=== PATIENT | female | born 1945 | race Caucasian/White ===

== ENCOUNTER → 2017-08-14 | Outpatient (CLI) | payer MEDICARE | END | disposition home or self-care (01) | LOC: RAH 09:44 | PROVIDERS: ATTEND Internal Medicine | DX: K80.20 Calculus of gallbladder without cholecystitis without obstruction (principal) | CPT/HCPCS: 76700 ==

== ENCOUNTER → 2017-09-24 | Outpatient (CLI) | payer MEDICARE ==
[2017-09-24 12:15] LABS: CREATININE 0.7 mg/dL (0.5-1.5)
== END | disposition home or self-care (01) ==
LOC: LAB 11:01
PROVIDERS: ATTEND Internal Medicine Gastroenterology
DX: C16.9 Malignant neoplasm of stomach, unspecified (principal); I10 Essential (primary) hypertension; E11.9 Type 2 diabetes mellitus without complications
CPT/HCPCS: 36415; 82565; 84520

== ENCOUNTER → 2017-09-28 | Outpatient (CLI) | payer MEDICARE ==
[~2017-09-28] MED LIST: IOPAMIDOL-370 75 ML VIAL IV ONE
== END ==
LOC: RAH 07:55
PROVIDERS: ATTEND Internal Medicine Gastroenterology
DX: C16.9 Malignant neoplasm of stomach, unspecified (principal); J84.10 Pulmonary fibrosis, unspecified; K82.8 Other specified diseases of gallbladder
CPT/HCPCS: 74178; Q9967